=== PATIENT | female | born 1945 | race Hispanic/Latino ===

== ENCOUNTER 2017-01-08 07:28 | Day surgery (SDC) | payer MEDICARE ==
[2016-12-31 11:04] VITALS: BMI 32.9
[2017-01-08] MEDS ORDERED: Propofol 10 mg/ml Inj (20 ML) ONE ×2 (09:06→09:21)
[2017-01-08] MEDS ORDERED: Sodium Chloride 0.9% 1,000 ML IV SCH (10:00)
[2017-01-08 11:14] VITALS: BP 146/76; PULSE 65; RESP 18; TEMP 98.4; O2SAT 97
== END 2017-01-08 11:26 | disposition home or self-care (01) ==
LOC: ENDO 07:28
PROVIDERS: ATTEND Specialist
DX: D12.4 Benign neoplasm of descending colon (principal); K64.8 Other hemorrhoids; Q43.8 Other specified congenital malformations of intestine; E11.9 Type 2 diabetes mellitus without complications; J45.909 Unspecified asthma, uncomplicated; Z90.49 Acquired absence of other specified parts of digestive tract; Z88.2 Allergy status to sulfonamides; Z12.11 Encounter for screening for malignant neoplasm of colon
CPT/HCPCS: 45385; 82948; 88305; J2704; J3010; J7040 ×2